=== PATIENT | female | born 1945 | race Caucasian/White ===

== ENCOUNTER 2022-06-03 16:22 | Observation (INO) | payer MEDICARE, OTHER ==
[~2022-06-03] VITALS: Ht 172.7 cm; Wt 95.3 kg
[2022-06-03 17:31] LABS: BASOPHILS % 0.3 % (0.0-1.0); EOSINOPHILS % 0.3 % (0.0-6.0); HEMATOCRIT 36.6 % (34.2-44.1); HEMOGLOBIN 12.1 g/dL (12.0-16.0); LYMPHOCYTES # (AUTO) 0.8 (1.0-3.2); LYMPHOCYTES % 7.3 % (18.0-39.1); MEAN CORPUSCULAR HEMOGLOBIN 30.9 pg (28-32); MEAN CORPUSCULAR HGB CONC 33.1 g/dL (31-35); MEAN CORPUSCULAR VOLUME 93.6 fL (81-99); MONOCYTES # (AUTO) 0.7 (0.2-0.8); MONOCYTES % 5.7 % (4.4-11.3); NEUTROPHILS # (AUTO) 9.8 (2.1-6.9); PLATELET COUNT 320 x10e3/uL (140-360); RED BLOOD COUNT 3.91 x10e6/uL (3.6-5.1); RED CELL DISTRIBUTION WIDTH 14.6 % (11.7-14.4)
[2022-06-03 17:41] LABS: COLOR,URINE YELLOW (YELLOW)
[2022-06-03 17:42] LABS: CLARITY,URINE CLEAR (CLEAR); KETONES,URINE TRACE (NEGATIVE); LEUKOCYTE ESTERASE ,URINE NEGATIVE (NEGATIVE); NITRITE,URINE NEGATIVE (NEGATIVE); PROTEIN,URINE DIPSTICK NEGATIVE (NEGATIVE); URINE UROBILINOGEN 0.2 mg/dL (0.2 - 1)
[2022-06-03 17:47] LABS: BACTERIA,URINE MANY /HPF; EPITHELIAL CELLS,URINE RARE /LPF; RBC,URINE 0-5 /HPF (0-5)
[2022-06-03 17:51] LABS: ALBUMIN 3.2 g/dL (3.5-5.0); ALBUMIN/GLOBULIN RATIO 0.9 (0.8-2.0); ANION GAP 15.9 mmol/L (8-16); CALCIUM 9.6 mg/dL (8.4-10.2); CREATININE, SERUM 0.72 mg/dL (0.57-1.11); POTASSIUM 3.9 mmol/L (3.5-5.1)
[2022-06-03] MEDS ORDERED: IBUPROFEN 600 MG TAB PO STA (18:45)
[2022-06-03] MEDS: SODIUM CHLORIDE 0.9% 1000ML 1,000 ML IV SCH (19:05)
[2022-06-03] MEDS ORDERED: ACETAMINOPHEN 325 MG TAB PO PRN (19:30)
[2022-06-03] MEDS ORDERED: HYDRALAZINE HCL 20 MG/ML VIAL IV PRN (19:30)
[2022-06-03] MEDS ORDERED: GUAIFENESIN/DEXTROMETHORPHAN LIQD 5 ML UDC PO PRN (19:30)
[2022-06-03] MEDS ORDERED: MELATONIN 3 MG TAB PO PRN (19:30)
[2022-06-03] MEDS ORDERED: MAGNESIUM/ALUMINUM/SIMETHICONE 30 ML UDC PO PRN (19:30)
[2022-06-03] MEDS ORDERED: IPRATROPIUM BROMIDE 0.02% 2.5 ML NEB NEB PRN (19:30)
[2022-06-03] MEDS ORDERED: ONDANSETRON HCL INJ 2MG/ML 2ML 2 MG/ML VIAL IV PRN (19:30)
[2022-06-03] MEDS ORDERED: CITRATE OF MAGNESIA 300ML BOTTLE PO ONE (20:15)
[2022-06-03 21:43] VITALS: BP 120/60
[2022-06-03] MEDS: HYDROCODONE/APAP 5MG-325MG TAB PO PRN (21:55)
[2022-06-03 22:10] VITALS: BP 120/60
[2022-06-04] VITALS (8 sets, daily range): BP systolic 103–133; BP diastolic 51–61
[2022-06-04] MEDS: HYDROCODONE/APAP 5MG-325MG TAB PO PRN ×2 (07:15→19:41)
[2022-06-04] MEDS: SODIUM CHLORIDE 0.9% 1000ML 1,000 ML IV SCH ×2 (08:05→19:38)
[2022-06-04] MEDS ORDERED: DOCUSATE SODIUM 100 MG CAP PO SCH (09:00)
[2022-06-04] MEDS: MULTIVITAMINS/MINERALS TAB PO SCH (10:10)
[2022-06-04] MEDS: DOCUSATE SODIUM LIQD 100 MG/10 ML UDC NG SCH (10:10)
[2022-06-04] MEDS: ENOXAPARIN SOD INJ 40 MG/0.4 ML SYR SC SCH (17:10)
[2022-06-05 07:41] VITALS: BP 156/74
[2022-06-05 08:36] VITALS: BP 156/74
[2022-06-05] MEDS: MULTIVITAMINS/MINERALS TAB PO SCH (08:42)
[2022-06-05] MEDS: DOCUSATE SODIUM LIQD 100 MG/10 ML UDC NG SCH (08:42)
[2022-06-05] MEDS: HYDROCODONE/APAP 5MG-325MG TAB PO PRN ×2 (08:43→16:33)
[2022-06-05] MEDS ORDERED: RINVOQ ER15 MG PO (08:45)
[2022-06-05] MEDS ORDERED: ONDANSETRON HCL 4 MG ORAL DISINTEGRATING TAB PO PRN (09:15)
[2022-06-05] MEDS: SODIUM CHLORIDE 0.9% 1000ML 1,000 ML IV SCH ×2 (10:45→20:10)
[2022-06-05 11:46] VITALS: BP 160/77
[2022-06-05] MEDS ORDERED: MELATONIN3 MG PO (11:47)
[2022-06-05] MEDS ORDERED: ZESTRIL10 MG PO (11:47)
[2022-06-05] MEDS ORDERED: HYDROCODON-ACE1 EA11 PO (11:47)
[2022-06-05] MEDS ORDERED: CYMBALTA30 MG PO (11:47)
[2022-06-05] MEDS ORDERED: MULTIVITAMINS1 EAC6 PO (11:47)
[2022-06-05] MEDS ORDERED: IPRATROPIU0.2 MG/1 M NEB (11:47)
[2022-06-05] MEDS ORDERED: ACETAMINOPHEN325 M1 PO (11:47)
[2022-06-05 15:42] VITALS: BP 148/72
[2022-06-05] MEDS: ENOXAPARIN SOD INJ 40 MG/0.4 ML SYR SC SCH (16:33)
[2022-06-05 20:00] VITALS: BP 137/64
[2022-06-05 20:50] VITALS: BP 137/64
[2022-06-06] VITALS: BP 156/82
[2022-06-06 04:00] VITALS: BP 159/84
[2022-06-06] MEDS ORDERED: SODIUM CHLORIDE 0.9% 1000ML 1,000 ML IV SCH (06:00)
[2022-06-06 07:21] VITALS: BP 164/81
[2022-06-06 08:00] VITALS: BP 164/81
[2022-06-06] MEDS: MULTIVITAMINS/MINERALS TAB PO SCH (09:12)
[2022-06-06] MEDS: DOCUSATE SODIUM LIQD 100 MG/10 ML UDC NG SCH (09:12)
[2022-06-06 11:35] VITALS: BP 150/85
[2022-06-06] MEDS ORDERED: METHOTREXATE2.5 MG PO (12:43)
[2022-06-06] MEDS ORDERED: LOSARTAN POTASS25 MG PO (12:43)
[2022-06-06] MEDS ORDERED: METOPROLOL SUCC50 MG PO (12:44)
[2022-06-06] MEDS ORDERED: MEDROL8 MG PO (12:45)
[2022-06-06] MEDS ORDERED: FOLIC ACID0.4 MG PO ×2 (12:47→12:48)
[2022-06-06] MEDS ORDERED: LIPITOR20 MG PO (12:47)
[2022-06-06 15:00] VITALS: BP 140/81
== END 2022-06-06 15:06 | disposition home or self-care (01) ==
LOC: ER 16:45 → ERHOLD 18:39 → INTOOBSV 18:39 → MED/SURG 21:27
PROVIDERS: ADMIT Internal Medicine Critical Care Medicine; ATTEND Internal Medicine Critical Care Medicine
DX: M06.9 Rheumatoid arthritis, unspecified (principal); R53.1 Weakness; M19.90 Unspecified osteoarthritis, unspecified site; I89.0 Lymphedema, not elsewhere classified; I10 Essential (primary) hypertension; Z87.891 Personal history of nicotine dependence
CPT/HCPCS: 0223U; 36415; 71045; 74018; 80053; 81001; 84484; 85025; 87086; 87186; 93005; 96360; 96361 ×2; 97116 ×2; 97139 ×4; 97161; 97530 ×2; 99251; 99284; G0378 ×4; J1650 ×2; J7030 ×3

== ENCOUNTER 2022-06-10 17:26 | Observation (INO) | payer MEDICARE ==
[~2022-06-10] VITALS: Ht 172.7 cm; Wt 90.7 kg
[~2022-06-10 17:26] MED LIST: ACETAMINOPHEN325 M1 PO; CYMBALTA30 MG PO; FOLIC ACID0.4 MG PO; HYDROCODON-ACE1 EA11 PO; IPRATROPIU0.2 MG/1 M NEB; LIPITOR20 MG PO; LOSARTAN POTASS25 MG PO; MEDROL8 MG PO; MELATONIN3 MG PO; METHOTREXATE2.5 MG PO; METOPROLOL SUCC50 MG PO; MULTIVITAMINS1 EAC6 PO; RINVOQ ER15 MG PO; ZESTRIL10 MG PO
[2022-06-10] MEDS ORDERED: SODIUM CHLORIDE 0.9% 1000ML 1,000 ML IV STA ×2 (17:29)
[2022-06-10 18:14] LABS: BASOPHILS % 0.3 % (0.0-1.0); EOSINOPHILS % 0.3 % (0.0-6.0); HEMOGLOBIN 13.6 g/dL (12.0-16.0); LYMPHOCYTES # (AUTO) 1.4 (1.0-3.2); LYMPHOCYTES % 15.6 % (18.0-39.1); MEAN CORPUSCULAR HEMOGLOBIN 31.1 pg (28-32); MEAN CORPUSCULAR HGB CONC 33.2 g/dL (31-35); MEAN CORPUSCULAR VOLUME 93.8 fL (81-99); MONOCYTES # (AUTO) 1.9 (0.2-0.8); MONOCYTES % 20.8 % (4.4-11.3); NEUTROPHILS # (AUTO) 5.7 (2.1-6.9); NEUTROPHILS % 62.2 % (38.7-80.0); PLATELET COUNT 261 x10e3/uL (140-360); RED BLOOD COUNT 4.37 x10e6/uL (3.6-5.1); RED CELL DISTRIBUTION WIDTH 14.6 % (11.7-14.4)
[2022-06-10 18:26] LABS: ALBUMIN 2.6 g/dL (3.5-5.0); ALBUMIN/GLOBULIN RATIO 0.7 (0.8-2.0); CREATININE, SERUM 0.75 mg/dL (0.57-1.11)
[2022-06-10] MEDS ORDERED: HYDRALAZINE HCL 20 MG/ML VIAL IV STA (20:15)
[2022-06-10] MEDS ORDERED: ONDANSETRON HCL INJ 2MG/ML 2ML 2 MG/ML VIAL IV PRN (22:15)
[2022-06-10] MEDS: ATORVASTATIN 40 MG TAB PO SCH (22:15)
[2022-06-10] MEDS ORDERED: ACETAMINOPHEN 325 MG TAB PO PRN (22:15)
[2022-06-10] MEDS ORDERED: DOCUSATE SODIUM 100 MG CAP PO PRN (22:15)
[2022-06-10] MEDS ORDERED: METOPROLOL TARTRATE INJ 1 MG/ML VIAL IV PRN (22:15)
[2022-06-10 22:29] LABS: CREATINE KINASE MB 3.7 ng/mL (0-5.0)
[2022-06-10 22:31] LABS: CLARITY,URINE CLOUDY (CLEAR); COLOR,URINE YELLOW (YELLOW); KETONES,URINE TRACE (NEGATIVE); LEUKOCYTE ESTERASE ,URINE LARGE (NEGATIVE); NITRITE,URINE POSITIVE (NEGATIVE); PROTEIN,URINE DIPSTICK NEGATIVE (NEGATIVE); URINE UROBILINOGEN 0.2 mg/dL (0.2 - 1)
[2022-06-10 22:39] LABS: BACTERIA,URINE MANY /HPF; EPITHELIAL CELLS,URINE FEW /LPF; RENAL EPITHELIAL CELLS,URINE FEW; WBC,URINE (MAN) >50 /HPF (0-5)
[2022-06-10 22:47] LABS: CHOL/HDL RATIO 5.5 (3.0-3.6)
[2022-06-11] VITALS (9 sets, daily range): BP systolic 123–135; BP diastolic 63–84
[2022-06-11] MEDS: SODIUM CHLORIDE 0.9% 1000ML 1,000 ML IV SCH ×4 (01:35→16:47)
[2022-06-11] MEDS ORDERED: METOPROLOL TARTRATE INJ 1 MG/ML VIAL IV ONE (03:15)
[2022-06-11 06:38] LABS: BASOPHILS % 0.3 % (0.0-1.0); HEMATOCRIT 39.3 % (34.2-44.1); HEMOGLOBIN 13.4 g/dL (12.0-16.0); LYMPHOCYTES # (AUTO) 1.3 (1.0-3.2); LYMPHOCYTES % 14.1 % (18.0-39.1); MEAN CORPUSCULAR HEMOGLOBIN 30.8 pg (28-32); MEAN CORPUSCULAR HGB CONC 34.1 g/dL (31-35); MEAN CORPUSCULAR VOLUME 90.3 fL (81-99); MONOCYTES # (AUTO) 1.5 (0.2-0.8); MONOCYTES % 16.8 % (4.4-11.3); NEUTROPHILS % 68.2 % (38.7-80.0); PLATELET COUNT 276 x10e3/uL (140-360); RED BLOOD COUNT 4.35 x10e6/uL (3.6-5.1); RED CELL DISTRIBUTION WIDTH 14.5 % (11.7-14.4)
[2022-06-11 07:04] LABS: ALBUMIN 2.3 g/dL (3.5-5.0); ALBUMIN/GLOBULIN RATIO 0.7 (0.8-2.0); ANION GAP 15.7 mmol/L (8-16); CALCIUM 7.7 mg/dL (8.4-10.2); CREATININE, SERUM 0.69 mg/dL (0.57-1.11); POTASSIUM 3.7 mmol/L (3.5-5.1)
[2022-06-11 07:22] LABS: CREATINE KINASE MB 8.7 ng/mL (0-5.0)
[2022-06-11] MEDS: LOSARTAN POTASSIUM 25 MG TAB PO SCH (08:44)
[2022-06-11] MEDS: FOLIC ACID 1 MG TAB PO SCH (08:44)
[2022-06-11] MEDS: METOPROLOL SUCCINATE 50 MG TAB XL PO SCH (08:45)
[2022-06-11] MEDS ORDERED: BEBTELOVIMAB 175 MG INJ IV ONE (14:00)
[2022-06-11] MEDS: ATORVASTATIN 40 MG TAB PO SCH (21:13)
[2022-06-12] VITALS (7 sets, daily range): BP systolic 130–138; BP diastolic 71–84
[2022-06-12] MEDS: SODIUM CHLORIDE 0.9% 1000ML 1,000 ML IV SCH ×2 (06:10→13:10)
[2022-06-12 06:58] LABS: BASOPHILS % 0.3 % (0.0-1.0); EOSINOPHILS % 0.3 % (0.0-6.0); LYMPHOCYTES # (AUTO) 1.3 (1.0-3.2); LYMPHOCYTES % 11.6 % (18.0-39.1); MEAN CORPUSCULAR HGB CONC 33.3 g/dL (31-35); MEAN CORPUSCULAR VOLUME 92.9 fL (81-99); MONOCYTES # (AUTO) 1.1 (0.2-0.8); MONOCYTES % 10.1 % (4.4-11.3); NEUTROPHILS # (AUTO) 8.4 (2.1-6.9); NEUTROPHILS % 77.3 % (38.7-80.0); PLATELET COUNT 286 x10e3/uL (140-360); RED CELL DISTRIBUTION WIDTH 14.8 % (11.7-14.4)
[2022-06-12 07:35] LABS: ANION GAP 14.9 mmol/L (8-16); CALCIUM 7.8 mg/dL (8.4-10.2); CREATININE, SERUM 0.64 mg/dL (0.57-1.11); POTASSIUM 3.9 mmol/L (3.5-5.1)
[2022-06-12] MEDS ORDERED: ONDANSETRON HCL 4 MG ORAL DISINTEGRATING TAB PO PRN (08:30)
[2022-06-12] MEDS: METOPROLOL SUCCINATE 50 MG TAB XL PO SCH (11:33)
[2022-06-12] MEDS: FOLIC ACID 1 MG TAB PO SCH (11:34)
[2022-06-12] MEDS: LOSARTAN POTASSIUM 25 MG TAB PO SCH (11:34)
[2022-06-13] MEDS ORDERED: BALSAM PERU/CASTOR OIL 60 GM OINT...G. TP SCH (09:00)
== END 2022-06-12 16:29 ==
LOC: ER 17:29 → ERHOLD 22:01 → INTOOBSV 22:01 → MED/SURG2 06-11 12:38
PROVIDERS: ADMIT Internal Medicine; ATTEND Internal Medicine
DX: U07.1 COVID-19 (principal); R62.7 Adult failure to thrive; M62.82 Rhabdomyolysis; I10 Essential (primary) hypertension; E78.5 Hyperlipidemia, unspecified; N39.0 Urinary tract infection, site not specified; E86.0 Dehydration; R94.31 Abnormal electrocardiogram [ECG] [EKG]; E87.1 Hypo-osmolality and hyponatremia; E66.9 Obesity, unspecified; M06.9 Rheumatoid arthritis, unspecified; F03.90 Unspecified dementia, unspecified severity, without behavioral disturbance, psychotic disturbance, mood disturbance, and anxiety; I47.1 Supraventricular tachycardia; I49.1 Atrial premature depolarization; Z85.41 Personal history of malignant neoplasm of cervix uteri; Z85.828 Personal history of other malignant neoplasm of skin; Z68.30 Body mass index [BMI] 30.0-30.9, adult
CPT/HCPCS: 36415; 70450; 71045; 80048; 80053; 80061; 81001; 82550; 82553; 83036; 83605; 83735; 84484; 85025; 87040; 93306; 94799; 99251; 99285; G0378; J0360; J7030